=== PATIENT | female | born 1970 | race African-American/Black ===

== ENCOUNTER 2017-05-14 11:41 | Day surgery (SDC) | payer MEDICARE, MEDICAID ==
[2017-05-13 09:12] VITALS: BMI 35.4
[2017-05-14] MEDS ORDERED: Lidocaine 2% 10 ML INJ ONE (13:45)
[2017-05-14] MEDS ORDERED: Bupivacaine/Epinephrine 0.25% 30 ML VIAL ONE (13:45)
[2017-05-14] MEDS ORDERED: CEFAZOLIN/Water 2 GM/20 ML SYRINGE ONE (13:55)
[2017-05-14] MEDS ORDERED: Fentanyl 100 MCG/2 ML VIAL ONE (13:55)
[2017-05-14] MEDS ORDERED: Midazolam HCl 2 mg/2 ml Vial ONE (13:55)
[2017-05-14] MEDS ORDERED: HYDROcodone/Acetaminophen 5/325 mg Tablet ONE (15:27)
--- NOTE | 2017-05-14 16:23 | OP ---
DATE OF PROCEDURE: 05/14/2017 PREOPERATIVE DIAGNOSIS: Lupus, nonfunctioning central venous access device. PROCEDURE PERFORMED: MediPort removal. SURGEON: Soto Gonzalez M.D. ANESTHESIA: General. SPECIMEN: None. COMPLICATIONS: None. FINDINGS: Not applicable. TECHNIQUE: The patient was taken to the operating room and placed supine on the table. After genera l anesthetic was obtained, the right upper chest and the reported side was prepped and draped in a st erile fashion. Previous incision was excised because it was hypertrophic, cut, dissected down to the port. The port was pulled and removed. The catheter site going up towards the internal jugular vei n was oversewn using Vicryl sutures. Subcutaneous tissues were irrigated, closed using Vicryl and Mo nocryl and Dermabond. The patient went to recovery in stable condition. Instrument counts, needle c ounts, lap counts were correct.
[2017-05-14] MEDS ORDERED: Propofol 200 MG/20 ML VIAL ONE (16:36)
== END 2017-05-14 15:50 | disposition home or self-care (01) ==
LOC: SDC 11:41
PROVIDERS: ATTEND Surgery
PROC: 0JPT0WZ Removal of Totally Implantable Vascular Access Device from Trunk Subcutaneous Tissue and Fascia, Open Approach (ICD-10-PCS; principal; 2017-05-14)
DX: T82.594A Other mechanical complication of infusion catheter, initial encounter (principal); M32.9 Systemic lupus erythematosus, unspecified; Z88.1 Allergy status to other antibiotic agents; Z88.2 Allergy status to sulfonamides; Z98.890 Other specified postprocedural states
CPT/HCPCS: J2250; J2704; J3010

== ENCOUNTER 2017-07-19 14:43 | Outpatient (CLI) | payer MEDICARE, MEDICAID | END 2017-07-19 14:44 | disposition home or self-care (01) | LOC: BICMAMMO 14:43 | PROVIDERS: ATTEND Internal Medicine Rheumatology | DX: M81.0 Age-related osteoporosis without current pathological fracture (principal); M85.80 Other specified disorders of bone density and structure, unspecified site | CPT/HCPCS: 77080 ==

== ENCOUNTER 2018-05-30 13:44 | Outpatient (CLI) | payer MEDICARE, MEDICAID ==
--- NOTE | 2018-05-30 14:21 | RAD ---
RIGHT KNEE 2 VIEWS: Date: 05/30/18 HISTORY: Pain in right knee. FINDINGS/IMPRESSION: Mild degenerative changes are present. No fracture, dislocation, or bony destruction is identified. POS: [facility]
--- NOTE | 2018-05-30 14:55 | RAD ---
RIGHT FOOT 3 VIEWS: Date: 05/30/18 HISTORY: Pain. COMPARISON: None. FINDINGS: There is advanced degenerative disease of the first and second tarsometatarsal joints. There is an os sicle along the lateral margin of the interphalangeal joint of the great toe. This may be sequelae of a prior fracture. Small plantar calcaneal spur. No acute fracture or malalignment. IMPRESSION: 1. Advanced first and second tarsometatarsal joint degenerative changes. 2. No acute fracture or malalignment. 3. Accessory ossicle along the lateral margin of the interphalangeal joint of the great toe may be s equelae of a prior fracture. POS: [facility]
== END 2018-05-30 13:45 | disposition home or self-care (01) ==
LOC: BICRAD 13:44
PROVIDERS: ATTEND Internal Medicine Rheumatology
DX: M25.561 Pain in right knee (principal); M79.671 Pain in right foot; M19.071 Primary osteoarthritis, right ankle and foot; M17.11 Unilateral primary osteoarthritis, right knee

== ENCOUNTER 2018-06-10 09:03 | Outpatient (CLI) | payer MEDICARE, MEDICAID ==
--- NOTE | 2018-06-10 12:45 | MRI ---
MRI RIGHT FOOT WITHOUT CONTRAST: HISTORY: Medial foot pain x1 month. Denies any injury or surgery. FINDINGS: There is a well circumscribed, benign appearing bone lesion involving the distal tibial shaft, less t dinh a centimeter in size. The Achilles tendon is normal in appearance. The anterior extensor tendons are normal in appearance. This examination is more tailored for evalua tion of the foot than ankle, but the peroneus longus and brevis tendons appear intact. The posterior tibialis, flexor digitorum longus, and flexor hallucis longus tendons appear intact. No ankle joint abnormalities are seen. Lisfranc ligament is intact, and Lisfranc joint is normal in appearance. The plantar fascia is sesar l. The spring ligament complex appears unremarkable. Incidental note is made of some mild atrophy o f the quadratus planti muscle, which is nonspecific. No edema change to suggest any type of denervat ion process. The remainder of the intrinsic muscles of the foot appear normal. There are no signs of any stress fracture or stress reaction. The sinus tarsi region is normal in appearance. IMPRESSION: Essentially unremarkable MRI of the right foot. POS: [facility]
== END 2018-06-10 09:04 | disposition home or self-care (01) ==
LOC: TBSIIMAG 09:03
PROVIDERS: ATTEND Internal Medicine Rheumatology
DX: M79.671 Pain in right foot (principal)

== ENCOUNTER 2018-08-16 16:42 | Inpatient (IN) | payer MEDICARE, MEDICAID ==
[~2018-08-16 16:42] MED LIST: ISOVUE-370 76%-LOCM 1 ML ONE; Iopamidol 370 76% 50 ML VIAL FS ONE
[2018-08-16 17:24] LABS: #Basophils 0.1 thou/uL (0.0-0.2); #Eosinphils 0.1 thou/uL (0.0-0.7); #Lymphocytes 2.8 thou/uL (1.20-3.40); #Neutrophils 4.7 thou/uL (1.40-6.50); %Basophils 1.4 % (0.0-1.0); %Eosinophils 0.9 % (0.0-10.0); %Lymphocytes 32.4 % (21.0-51.0); %Neutrophils 54.3 % (42.0-75.0); Hemoglobin 15.6 g/dL (12.0-16.0); Mean Corpuscular HGB CONC 32.1 g/dL (32.0-36.0); Mean Corpuscular Hemoglobin 30.6 pg (27.0-31.0); Mean Corpuscular Volume 95.2 fL (78.0-98.0); Mean Platelet Volume 6.3 fL (7.4-10.4); Platelet Count 328 thou/uL (130-400); RBC Distribution Width 13.3 % (11.5-14.5); Red Blood Cell (RBC) Count 5.09 mill/uL (4.20-5.40); White Blood Cell (WBC) Count 8.7 thou/uL (4.8-10.8)
[2018-08-16 17:51] LABS: ALT (SGPT) 18 U/L (8-55); AST (SGOT) 15 U/L (5-34); Albumin 4.4 g/dL (3.5-5.0); Alkaline Phosphatase 105 U/L (40-150); Anion Gap 13 mmol/L (10-20); BUN (Urea Nitrogen) 11 mg/dL (7.0-18.7); Bilirubin, Total 0.4 mg/dL (0.2-1.2); Calc. Creatinine Clearance 0 mL/min (70-130); Calcium 9.7 mg/dL (7.8-10.44); Carbon Dioxide 26 mmol/L (22-29); Chloride 104 mmol/L (98-107); Estimated GFR-MDRD 88; Globulin 3.9 g/dL (2.4-3.5); Glucose 101 mg/dL (70-105); Lipase 52 U/L (8-78); Potassium 3.8 mmol/L (3.5-5.1); Protein, Total 8.3 g/dL (6.0-8.3); Sodium 139 mmol/L (136-145)
[2018-08-16] MEDS ORDERED: Morphine 4 MG/ML VIAL ONE (18:07)
[2018-08-16] MEDS ORDERED: Ondansetron PF 4 MG/2 ML Vial ONE (18:07)
[2018-08-16 18:13] LABS: Bilirubin Negative (Negative); Blood, Urine Negative (Negative); Glucose, Urine (Dipstick) Negative (Negative); Leukocyte Trace (Negative); Nitrite Negative (Negative); Protein, Urine (Dipstick) 30 mg/dL (Neg-Trace); Urobilinogen 0.2 mg/dL (Less than 2)
[2018-08-16 18:20] LABS: Clarity Clear (Clear)
[2018-08-16 18:21] LABS: Bacteria/HPF 1+ HPF (None Seen); RBC/HPF None Seen HPF (0-3); Squamous Epithelial 0-3 HPF (0-3)
--- NOTE | 2018-08-16 18:38 | PDOC.FPRHP ---
- History of Present Illness Chief Complaint: abdominal pain History of Present Illness: Ms. Reinoso is a 47yo female who presented to the ED this afternoon by recommendation from Dr. Shaw for management of suspected acute on chronic pancreatitis. She has a history of chronic pancreatitis followed by Dr. Shaw, her last admission to this hospital for this problem was in July of 2016. She has been to the [facility] for similar symptoms once since then. This episode began two days ago with decreased appetite and pain with eating. Her abdominal pain is located in the midepigastrium and has progressively worsened over the last two days to a 9/10 today. She has had associated chills, nausea, vomiting, and diarrhea for which Immodium did not help. Zofran helped the nausea. Her last attempt to eat was last night and she was unable to keep it down. PMH is significant for Lupus and HTN. ED Course: Morphine 8mg IV, Zofran 4mg IV, 1L NS bolus, maintenance NS 200mL/hour. - Allergies/Adverse Reactions Allergies Allergy/AdvReac Type Severity Reaction Status Date / Time sulfamethoxazole Allergy Severe lips Verified 05/13/17 09:12 [From Bactrim] swelled up; throat was closing trimethoprim [From Bactrim] Allergy Severe lips Verified 05/13/17 09:12 swelled up; throat was closing - Home Medications Medication Instructions Recorded Confirmed Type ALPRAZolam [Xanax] 1 mg PO HS 11/24/13 08/16/18 History Atenolol [Tenormin] 100 mg PO DAILY 11/24/13 08/16/18 History Esomeprazole Magnesium [Nexium] 40 mg PO QAM 11/24/13 08/16/18 History FLUoxetine HCl [Prozac] 60 mg PO QAM 11/24/13 08/16/18 History Mycophenolate Mofetil [Cellcept] 250 mg PO BID 11/24/13 08/16/18 History predniSONE 1 mg PO QAM- 11/24/13 08/16/18 History Pancrelipase 03235 [Creon DR 4 capsule PO TID-WM 08/01/16 08/16/18 History 10903] busPIRone HCl [Buspar] 10 mg PO QAM 08/01/16 08/16/18 History NIFEdipine [Nifedipine ER] 60 mg PO QAM 05/13/17 08/16/18 History - History PMHx: Hypertension Lupus PSHx: Cholecystectomy , x3 Mediport insertion and removal FHx: Mother - HTN Several aunts with ovarian cancer, liver metastasis Social: Does not smoke or drink alcohol. - Review of Systems General: reports: fever/chills. denies: weight/appetite/sleep changes, night sweats, fatigue ENT: denies: nasal congestion, rhinorrhea Respiratory: denies: cough, congestion Cardiovascular: denies: chest pain, palpitation, edema, paroxysmal nocturnal dyspnea, orthopnea Gastrointestinal: reports: nausea, vomiting, diarrhea, abdominal pain. denies: constipation, GI bleeding Genitourinary: denies: incontinence, dysuria, polyuria, discharge Skin: denies: rashes Musculoskeletal: denies: pain Neurological: reports: numbness (reports intermittent facial numbness in last month) Psychological: reports: anxiety, depression - Vital signs BP: 134/64 HR: 77 RR: 14 Pox: 95% on RA Wt: 92.5kg - Physical Exam Constitutional: NAD, awake, alert and oriented HEENT: normocephalic and atraumatic Neck: supple, FROM Heart: RRR, normal S1/S2, no murmurs/rubs/gallops, pulses present, no edema Lungs: CTAB, no respiratory distress, good air movement, no rales/rhonchi, no wheezing, no retractions Abdomen: soft (exquisitely tender in midepigastrium), bowel sounds present Musculoskeletal: normal structure, normal tone Neurological: no focal deficit Skin: no rash/lesions Psychiatric: normal mood and affect FMR H&P: Results - Labs Result Diagrams: 08/16/18 17:13 08/16/18 17:13 Lab results: WBC 8.7 thou/uL (4.8-10.8) 08/16/18 17:13 Hgb 15.6 g/dL (12.0-16.0) 08/16/18 17:13 Hct 48.5 % (36.0-47.0) H 08/16/18 17:13 MCV 95.2 fL (78.0-98.0) 08/16/18 17:13 Plt Count 328 thou/uL (130-400) 08/16/18 17:13 Neutrophils % 54.3 % (42.0-75.0) 08/16/18 17:13 Sodium 139 mmol/L (136-145) 08/16/18 17:13 Potassium 3.8 mmol/L (3.5-5.1) 08/16/18 17:13 Chloride 104 mmol/L (98-107) 08/16/18 17:13 Carbon Dioxide 26 mmol/L (22-29) 08/16/18 17:13 BUN 11 mg/dL (7.0-18.7) 08/16/18 17:13 Creatinine 0.84 mg/dL (0.6-1.1) 08/16/18 17:13 Glucose 101 mg/dL (70-105) 08/16/18 17:13 Calcium 9.7 mg/dL (7.8-10.44) 08/16/18 17:13 Total Bilirubin 0.4 mg/dL (0.2-1.2) 08/16/18 17:13 AST 15 U/L (5-34) 08/16/18 17:13 ALT 18 U/L (8-55) 08/16/18 17:13 Alkaline Phosphatase 105 U/L (40-150) 08/16/18 17:13 Serum Total Protein 8.3 g/dL (6.0-8.3) 08/16/18 17:13 Albumin 4.4 g/dL (3.5-5.0) 08/16/18 17:13 Lipase 52 U/L (8-78) 08/16/18 17:13 Urine Ketones Negative mg/dL (Negative) 08/16/18 17:52 Urine Blood Negative (Negative) 08/16/18 17:52 Urine Nitrite Negative (Negative) 08/16/18 17:52 Ur Leukocyte Esterase Trace (Negative) H 08/16/18 17:52 Urine RBC None Seen HPF (0-3) 08/16/18 17:52 Urine WBC 4-6 HPF (0-3) A 08/16/18 17:52 Ur Squamous Epith Cells 0-3 HPF (0-3) 08/16/18 17:52 Urine Bacteria 1+ HPF (None Seen) A 08/16/18 17:52 - EKG Interpretation EKG: "Normal sinus rhythm 68BPM. Similar to old EKG, Conduction normal, ST segments normal, T waves, Prolonged QT." FMR H&P: A/P - Problem List (1) Pancreatitis Current Visit: No Status: Acute Code(s): K85.90 - ACUTE PANCREATITIS WITHOUT NECROSIS OR INFECTION, UNSP Qualifiers: Chronicity: acute Pancreatitis type: unspecified pancreatitis type Acute pancreatitis complication: no infection or necrosis Qualified Code(s): K85.90 - Acute pancreatitis without necrosis or infection, unspecified (2) HTN (hypertension) Current Visit: No Status: Chronic Code(s): I10 - ESSENTIAL (PRIMARY) HYPERTENSION Qualifiers: Hypertension type: essential hypertension Qualified Code(s): I10 - Essential (primary) hypertension (3) Lupus (systemic lupus erythematosus) Current Visit: No Status: Chronic Code(s): M32.9 - SYSTEMIC LUPUS ERYTHEMATOSUS, UNSPECIFIED (4) GERD (gastroesophageal reflux disease) Current Visit: Yes Status: Acute Code(s): K21.9 - GASTRO-ESOPHAGEAL REFLUX DISEASE WITHOUT ESOPHAGITIS (5) Asymptomatic bacteriuria Current Visit: Yes Status: Acute Code(s): R82.71 - BACTERIURIA (6) Anxiety and depression Current Visit: Yes Status: Acute Code(s): F41.9 - ANXIETY DISORDER, UNSPECIFIED; F32.9 - MAJOR DEPRESSIVE DISORDER, SINGLE EPISODE, UNSPECIFIED - Plan 1. Acute on chronic pancreatitis - Lipase 52, LDH 297, AST/ALT . - Aggressive IV fluid therapy, maintenance NS 200mL/hr. - Pain control with morphine IV 4mg q4hr PRN for pain. - Zofran prn for nausea. - NPO, Meds with sips of water. - CT abdomen and pelvis with IV and oral contrast - The pancreas is enlarged and stable since 07/2016. There is no mass, ductal dilatation, calcifications, or fat stranding. - Consult GI - Dr. Shaw. - Will admit to medical as she is low risk for complicated pancreatitis. 2. Hypertension - Currently normotensive, stable, will resume atenolol 100mg and nifedipine 60mg. 3. Lupus - Stable, continue Prednisone 1mg, Creon, and CellCept. 4. GERD - Stable, will resume Nexium. 5. Anxiety/Depression - Stable, will resume alprazolam, prozac, and buspirone. 6. Asymptomatic bacteriuria - she is asymptomatic. If symptoms present, will treat accordingly. Code Status: Full VTE Prophylaxis: Lovenox 40mg Peripheral IV 22g AC 08/16/2018. Disposition/LOS: Admitted to medical floor. Likely length of stay 48 hours. Plan will be for d/c home when ready. FMR H&P: Upper Level - Pertinent history 47 y/o F with PMHx chronic pancreatitis and lupus presents to the ED from Dr. Shaw office for chronic pancreatitis. She has been having symptoms of increased satiety, bloating, and abdominal pain since this weekend. She reports that she drank a anya on 11 of August and she wasn't feeling well at the time, but since then it has gotten worse. Denies fevers, reports nausea for which she has been taking zofran. Reports the morphine that she received in the ED helped some with the pain. She reports the pain is worse after eating. She has not eaten since yesterday. - Pertinent findings Vitals: BP 105/83, HR 74, RR 16, Temp 98.3, O2 sat 95% on RA PE: Gen - alert, oriented, resting comfortably in bed in NAD HEENT - MMM CV - RRR, no murmurs Resp - CTAB, no wheezes Abd - soft, Non-distended, moderately tender in ANGELA region, no rebound or guarding Ext - no edema Labs: WBC 8.7, Hb 15.6, Na 139, K 3.8, BUN 11, Cr 0.84, Lipase 52, AST 15, ALT 18, t bili 0.4, Alk phos 105 CT abd: pancreas enlarged, but stable from prior studies, no acute findings - Plan Date/Time: 08/16/181836 ICarol MD, PGY-3, have evaluated this patient and agree with findings/ plan as outlined by customer operations intern resident. Pertinent changes/additions are listed here. 1. Chronic Pancreatitis Patient with no elevated in lipase, white count. Stable CT findings with no abscess -Will admit for pain control -NPO, will advance diet as tolerated -Morphine and toradol prn pain control -Continue home creon and pantoprazole -NS @ 200 -Zofran prn nausea -Dr. Shaw with GI has been consulted, appreciate recs 2. Lupus Patient does not appear to be having a lupus flare -Will continue home cellcept and prednisone 3. HTN -Continue home nifedipine and atenolol 4. Anxiety -Continue home xanax, buspirone, and fluoxetine Dispo: admit to medical VTE ppx: Lovenox Code status: Full Diet NPO
[2018-08-16 19:19] LABS: CRP (Inflammatory) 1.28 mg/dL (= or < 0.5); Complement-C4 42.2 mg/dL (15-57)
--- NOTE | 2018-08-16 21:39 | CT ---
CT ABDOMEN AND PELVIS WITH ORAL AND IV CONTRAST: HISTORY: Acute on chronic pancreatitis. COMPARISON: 07/28/2016 FINDINGS: Mild atelectatic changes are seen at the left lung base. The liver, spleen, adrenal glands, and kidn eys are normal. The prominent/enlarged pancreas is stable since 07/28/2016, without mass, abnormal pa ncreatic ductal dilatation, calcifications, or peripancreatic inflammatory changes. No free air, tramaine e fluid, or lymphadenopathy is seen in the abdomen or pelvis. No abnormally loculated fluid collecti ons are noted. The small bowel loops are not abnormally dilated. There is colonic diverticulosis without diverticul itis. Uterus and ovaries are present. There is a 2 cm right adnexal cyst, likely ovarian. A normal appearing appendix is seen. There are vascular calcifications without evidence of aneurysmal dilatation of the abdominal aorta. There are degenerative changes in the spine. The patient is post cholecystectomy. No portal splenic venous thrombosis is seen. IMPRESSION: No CT evidence of complications of pancreatitis. POS: [facility]
[2018-08-16] MEDS ORDERED: Famotidine/PF 20 mg/2ml Vial ONE (22:03)
[2018-08-16] MEDS ORDERED: Famotidine 20 MG TAB ONE (22:04)
[2018-08-16] MEDS ORDERED: Morphine 4 MG/ML VIAL SLOW IVP PRN (22:12)
[2018-08-16] MEDS ORDERED: ALPRAZolam 0.5 MG TAB PO SCH (22:30)
[2018-08-16] MEDS ORDERED: Mycophenolate 250 MG CAP PO SCH (22:30)
[2018-08-16] MEDS ORDERED: ALPRAZolam 0.25 MG TAB ONE (22:49)
[2018-08-16] MEDS: Sodium Chloride 0.9% 1,000 ML IV SCH (22:59)
--- NOTE | 2018-08-17 00:19 | CON ---
DATE OF CONSULTATION: REASON FOR CONSULT: Epigastric pain, nausea, and vomiting. HISTORY OF PRESENT ILLNESS: Ms. Reinoso is a 47-year-old female, well known to me from the past, with history of significant lupus for over 15 years. This was initially diagnosed at [facility] when she presented with systemic disease including signs of pain and mild pancreatic inflammation at that time. 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 She came to my office after about a week, she states epigastric pain with regurgitation and inability to tolerate p.o. She has not really had much diarrhea. She cut her CellCept down to 250 mg once a day. She was not able to tolerate 500 mg which she had been on in the past. She was using pancreatic enzymes at home. More recently, she was taking some Zofran and her Protonix. She was trying to just go on Gatorade, but the pain has been pretty severe. She has been using some old Bentyl she had, but it really was not helping. She had an episode similar to this in 2017 at which time she had a CAT scan that was nondiagnostic, except for generous size pancreas. She had an endoscopic ultrasound at that admission which was normal. No abnormalities were noted. It was felt that with the elevated double-stranded DNA at that time, she probably was having a lupus flare. There was also some concern at that admission that her CellCept was giving her chronic diarrhea. She did have a normal EGD at that time. With her ongoing symptoms and worsening symptoms prior to coming to see me and the fact she has not been able to hold down any liquids for 2 days, I recommended she be admitted. There were no rooms available for admission, so was entered through the emergency room. Now, she has been admitted to her primary physician's Family Practice, and I have been asked to see her in evaluation. PAST MEDICAL HISTORY: 1. Lupus, previous complications, gastritis, pancreatitis, pneumonitis, pericardial effusions, hypertension. Her pancreatic involvement has been felt to be based on the process of vasculitis. 2. Prior history of osteoporosis. 3. Depression. 4. Steroid dependence in the past. 5. Proteinuria in the past. 6. History of gastroparesis, reflux, chronic abdominal pain. PAST SURGICAL HISTORY: Laparoscopic cholecystectomy. ALLERGIES: SULFA DRUGS AND BACTRIM. MEDICATIONS: At home: 1. Prednisone. 2. BuSpar. 3. Pancrelipase. 4. Nifedipine. 5. CellCept. 6. Fluoxetine. 7. Nexium. 8. Belimumab. 9. Atenolol. 10. Alprazolam. REVIEW OF SYSTEMS: Negative for fever, chills, rashes, myalgias, or arthralgias. Negative for melena, hematochezia, or hematemesis. Negative for headaches, vision changes. PHYSICAL EXAMINATION: VITAL SIGNS: Temperature is 98.6, pulse is 52, and blood pressure 157/90. GENERAL: She has jorge facies. HEENT: Oropharynx without lesions. There is no evidence of thrush. NECK: Supple. LUNGS: Clear. HEART: Regular rate and rhythm, without clicks, rubs, or murmurs. ABDOMEN: Soft. There is mild tenderness in the epigastrium with voluntary guarding, but no rebound. There is no rebound or guarding in the lower abdomen. EXTREMITIES: No clubbing, cyanosis, or edema. SKIN: Without overt rashes or lesions. LABORATORY DATA: White count 8.7, hemoglobin 15.6, platelet count 328. Comprehensive metabolic profile is normal. Lipase is 52. Urinalysis, moderate blood. ASSESSMENT: 1. Lupus. 2. Severe abdominal pain last week with inability to tolerate p.o. RECOMMENDATIONS: IV fluids, clear liquids, nausea control. Would check a C3, C4, double-stranded DNA, CRP, and sedimentation rate to evaluate her lupus. It may be reasonable to involve her step down specialist in her care. If she has ongoing symptoms, we can consider repeating an EGD or imaging, although these have been normal in the past. We will follow along with you. Job ID: [id number]
[2018-08-17] MEDS ORDERED: Ketorolac Tromethamine 30 MG/ML VIAL IVP PRN (00:21)
[2018-08-17] MEDS ORDERED: Morphine 4 MG/ML VIAL ONE (04:09)
[2018-08-17 04:10] LABS: #Basophils 0.1 thou/uL (0.0-0.2); #Eosinphils 0.1 thou/uL (0.0-0.7); #Lymphocytes 2.9 thou/uL (1.20-3.40); #Monocytes 0.8 thou/uL (0.11-0.59); #Neutrophils 3.9 thou/uL (1.40-6.50); %Basophils 0.8 % (0.0-1.0); %Eosinophils 0.9 % (0.0-10.0); %Lymphocytes 37.1 % (21.0-51.0); %Monocytes 10.7 % (0.0-10.0); %Neutrophils 50.5 % (42.0-75.0); Hemoglobin 13.8 g/dL (12.0-16.0); Mean Corpuscular HGB CONC 32.1 g/dL (32.0-36.0); Mean Corpuscular Hemoglobin 30.9 pg (27.0-31.0); Mean Corpuscular Volume 96.5 fL (78.0-98.0); Mean Platelet Volume 6.4 fL (7.4-10.4); Platelet Count 273 thou/uL (130-400); RBC Distribution Width 13.4 % (11.5-14.5); Red Blood Cell (RBC) Count 4.47 mill/uL (4.20-5.40); White Blood Cell (WBC) Count 7.8 thou/uL (4.8-10.8)
[2018-08-17 04:28] LABS: ALT (SGPT) 217 U/L (8-55); AST (SGOT) 228 U/L (5-34); Albumin 3.8 g/dL (3.5-5.0); Alkaline Phosphatase 124 U/L (40-150); Anion Gap 9 mmol/L (10-20); BUN (Urea Nitrogen) 8 mg/dL (7.0-18.7); Bilirubin, Total 0.5 mg/dL (0.2-1.2); Calc. Creatinine Clearance 0 mL/min (70-130); Calcium 8.8 mg/dL (7.8-10.44); Carbon Dioxide 28 mmol/L (22-29); Chloride 108 mmol/L (98-107); Estimated GFR-MDRD Greater than 90; Glucose 101 mg/dL (70-105); Potassium 4.6 mmol/L (3.5-5.1); Protein, Total 6.8 g/dL (6.0-8.3); Sodium 140 mmol/L (136-145)
[2018-08-17] MEDS: Sodium Chloride 0.9% 1,000 ML IV SCH ×5 (05:51→21:06)
[2018-08-17 07:43] VITALS: BMI 38.5
[2018-08-17] MEDS: Pancrelipase DR 12000 1 CAP PO SCH ×3 (08:00→17:06)
--- NOTE | 2018-08-17 09:06 | PDOC.FM ---
- Subjective Subjective: pt resting in bed, she reports minimal pain, willing to try PO today - Objective Vital Signs & Weight: Vital Signs (12 hours) Temp Pulse Resp BP Pulse Ox 08/17/18 07:41 97.8 F 78 18 133/80 93 L Weight Weight 92.533 kg Result Diagrams: 08/17/18 03:57 08/17/18 03:57 Phys Exam - Physical Examination Constitutional: NAD HEENT: moist MMs Neck: no JVD Respiratory: clear to auscultation bilateral Cardiovascular: no significant murmur Gastrointestinal: non-tender, no distention Musculoskeletal: pulses present Neurological: non-focal Psychiatric: normal affect Skin: no rash Dx/Plan (1) Pancreatic enlargement Code(s): K86.9 - DISEASE OF PANCREAS, UNSPECIFIED Status: Acute (2) CKD (chronic kidney disease), stage II Code(s): N18.2 - CHRONIC KIDNEY DISEASE, STAGE 2 (MILD) Status: Chronic (3) HTN (hypertension) Code(s): I10 - ESSENTIAL (PRIMARY) HYPERTENSION Status: Chronic Qualifiers: Hypertension type: essential hypertension Qualified Code(s): I10 - Essential (primary) hypertension (4) Lupus (systemic lupus erythematosus) Code(s): M32.9 - SYSTEMIC LUPUS ERYTHEMATOSUS, UNSPECIFIED Status: Chronic - Plan Plan: chronic pancreatitis - Lipase 52, LDH 297, AST/ALT . - Aggressive IV fluid therapy, maintenance NS 200mL/hr. - Pain control with morphine IV 4mg q4hr PRN for pain. - Zofran prn for nausea. - ADAT - CT abdomen and pelvis with IV and oral contrast: pancreas is enlarged and stable since 07/2016. There is no mass, ductal dilatation, calcifications, or fat stranding. - Consult GI - Dr. Shaw, appreciate recs - Will admit to medical as she is low risk for complicated pancreatitis. Hypertension - Currently normotensive, stable, will resume atenolol 100mg and nifedipine 60mg. Lupus - Stable, continue Prednisone 1mg, Creon, and CellCept. GERD - Stable, continue Nexium. Anxiety/Depression - Stable, continue alprazolam, prozac, and buspirone. Asymptomatic bacteriuria - she is asymptomatic. If symptoms present, will treat accordingly. Code Status: Full VTE Prophylaxis: Lovenox 40mg Dispo: DC with minimal pain and PO tolerance Addendum - Attending - Attending Attestation Date/Time: 08/17/18 2623 I personally evaluated the patient and discussed the management with Dr. Villagran. I agree with the History, Examination, Assessment and Plan documented above with any addition or exceptions noted below.
[2018-08-17] MEDS ORDERED: Enoxaparin Sodium 40 MG/0.4 ML SYRINGE ONE (11:05)
[2018-08-17] MEDS: Enoxaparin Sodium 40 MG/0.4 ML SYRINGE SC SCH (11:28)
[2018-08-17] MEDS: Mycophenolate 250 MG CAP PO SCH ×2 (12:26→21:03)
[2018-08-17] MEDS: NIFEdipine XL 60 MG TAB PO SCH (12:27)
[2018-08-17] MEDS: Atenolol 50 MG TAB PO SCH (12:27)
[2018-08-17] MEDS: predniSONE 1 MG TAB PO SCH (12:27)
[2018-08-17] MEDS: FLUoxetine HCl 20 MG CAP PO SCH (12:28)
[2018-08-17] MEDS: busPIRone HCl 5 MG TAB PO SCH (12:28)
[2018-08-17] MEDS ORDERED: Cosyntropin 250 MCG VIAL SLOW IVP SCH (17:15)
--- NOTE | 2018-08-17 17:34 | PRG ---
DATE OF SERVICE: 08/17/2018 SUBJECTIVE: Ms. Reinoso is lying in bed. She states her stomach feels better than it did yesterday. She has still only been able to eat a little bit of broth and had stopped, did give her some diarrhea as her abdomen is still pretty uncomfortable. She has not had any vomiting noted today. OBJECTIVE: VITAL SIGNS: Temperature is 97.5, pulse is 62, blood pressure is 108/73, O2 saturation 96%, and respirations 18. GENERAL: She has jorge facies. She has chronic steroid use. HEENT: Oropharynx without any evidence of thrush or other oral lesions. LUNGS: Clear. HEART: Regular rate and rhythm without clicks or murmurs. ABDOMEN: Soft. There is no rebound. There is no guarding. EXTREMITIES: No clubbing, cyanosis, or edema. LABORATORY DATA: White count 7.8, hemoglobin 13.8, and platelet count 273. Sedimentation rate 26. Sodium 140, potassium is 4.6, chloride is 108, BUN and creatinine are 8 and 0.75. AST and ALT bumped from normal yesterday to 228 and 217. CRP was 1.28. Lipase is 52. Double-stranded DNA is pending. Complement C3 and C4 were normal. ASSESSMENT: Abdominal pain, severe several days of vomiting prior to admission. She has had bouts, such as this in the past, typically when her lupus flares. Usually, workup is negative. Her CAT scan did show a generous pancreas, this has been noted in 2017 when she was here. After that admission, she had endoscopic ultrasound of the pancreas, which was read as completely normal. There were no signs of pancreatitis on her CT. RECOMMENDATIONS: 1. EGD tomorrow to make sure there is not a Miladis or ulcers, although that is likely normal. 2. If symptoms persist, consider gastroparesis treatment. 3. 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 Pineda, he can be reached via phone. I will leave this to the primary service. Job ID: [id number]
[2018-08-17] MEDS: Ondansetron ODT 4 MG TAB PO PRN (17:36)
[2018-08-17] MEDS: ALPRAZolam 0.5 MG TAB PO SCH (21:03)
[2018-08-18] MEDS: Sodium Chloride 0.9% 1,000 ML IV SCH (05:27)
[2018-08-18 06:28] LABS: ALT (SGPT) 196 U/L (8-55); AST (SGOT) 97 U/L (5-34); Albumin 3.5 g/dL (3.5-5.0); Alkaline Phosphatase 111 U/L (40-150); Anion Gap 8 mmol/L (10-20); BUN (Urea Nitrogen) Less than 4 mg/dL (7.0-18.7); Bilirubin, Total 0.5 mg/dL (0.2-1.2); Calc. Creatinine Clearance 159 mL/min (70-130); Calcium 8.7 mg/dL (7.8-10.44); Carbon Dioxide 26 mmol/L (22-29); Chloride 110 mmol/L (98-107); Estimated GFR-MDRD Greater than 90; Glucose 80 mg/dL (70-105); Lipase 39 U/L (8-78); Potassium 3.8 mmol/L (3.5-5.1); Protein, Total 6.5 g/dL (6.0-8.3); Sodium 140 mmol/L (136-145)
[2018-08-18 06:51] LABS: Hemoglobin 13.4 g/dL (12.0-16.0); Mean Corpuscular HGB CONC 31.3 g/dL (32.0-36.0); Mean Corpuscular Hemoglobin 30.5 pg (27.0-31.0); Mean Corpuscular Volume 97.4 fL (78.0-98.0); Mean Platelet Volume 6.8 fL (7.4-10.4); Platelet Count 250 thou/uL (130-400); RBC Distribution Width 13.5 % (11.5-14.5); Red Blood Cell (RBC) Count 4.38 mill/uL (4.20-5.40); White Blood Cell (WBC) Count 5.8 thou/uL (4.8-10.8)
--- NOTE | 2018-08-18 08:04 | PDOC.FM ---
- Subjective Subjective: pt resting comfortably in bed, reports minimal abdominal pain. continues to have difficulties tolerating PO - Objective Vital Signs & Weight: Vital Signs (12 hours) Temp Pulse Resp BP Pulse Ox 08/18/18 07:19 98.1 F 66 16 131/82 97 08/18/18 04:00 98.6 F 65 18 103/63 94 L 08/17/18 23:38 98.1 F 72 16 117/74 97 08/17/18 20:27 98.4 F 67 16 110/77 94 L Weight Weight 92.533 kg I&O: 08/17/18 08/18/18 08/19/18 06:59 06:59 06:59 Intake Total 600 Balance 600 Result Diagrams: 08/18/18 04:56 08/18/18 04:56 Phys Exam - Physical Examination Constitutional: NAD HEENT: moist MMs Neck: no JVD Respiratory: clear to auscultation bilateral Cardiovascular: RRR, no significant murmur Gastrointestinal: soft, non-tender, no distention, positive bowel sounds Musculoskeletal: pulses present Neurological: moves all 4 limbs Psychiatric: normal affect Skin: no rash Dx/Plan (1) Pancreatic enlargement Code(s): K86.9 - DISEASE OF PANCREAS, UNSPECIFIED Status: Acute (2) CKD (chronic kidney disease), stage II Code(s): N18.2 - CHRONIC KIDNEY DISEASE, STAGE 2 (MILD) Status: Chronic (3) HTN (hypertension) Code(s): I10 - ESSENTIAL (PRIMARY) HYPERTENSION Status: Chronic Qualifiers: Hypertension type: essential hypertension Qualified Code(s): I10 - Essential (primary) hypertension (4) Lupus (systemic lupus erythematosus) Code(s): M32.9 - SYSTEMIC LUPUS ERYTHEMATOSUS, UNSPECIFIED Status: Chronic - Plan Plan: chronic pancreatitis - Lipase 52, LDH 297, AST/ALT improved - CT abdomen and pelvis with IV and oral contrast: pancreas is enlarged and stable since 07/2016. There is no mass, ductal dilatation, calcifications, or fat stranding. - Consult GI - Dr. Shaw, appreciate recs - EGD today - pain has improved, tolerating some PO. evaluate for other causes of abdominal pain Transaminitis - improved Hypertension - Currently normotensive, stable, will resume atenolol 100mg and nifedipine 60mg. Lupus - Stable, continue Prednisone 1mg, Creon, and CellCept. - consider calling to confer with rhuematologist regarding pain GERD - Stable, continue Nexium. Anxiety/Depression - Stable, continue alprazolam, prozac, and buspirone. Asymptomatic bacteriuria - she is asymptomatic. If symptoms present, will treat accordingly. Code Status: Full VTE Prophylaxis: Lovenox 40mg Dispo: further eval today, advance diet Addendum - Attending - Attending Attestation Date/Time: 08/18/18 1054 I personally evaluated the patient and discussed the management with Dr. Villagran. I agree with the History, Examination, Assessment and Plan documented above with any addition or exceptions noted below.
[2018-08-18 08:44] LABS: Band 1 % (5-11); Eosinophils 3 % (0-10); Lymphocytes 64 % (21-51); MDiff Complete? YES; Monocytes 3 % (0-10); Neutrophil 29 % (42-75); RBC Morphology Normal
[2018-08-18] MEDS ORDERED: Fentanyl 100 MCG/2 ML VIAL ONE (12:36)
[2018-08-18] MEDS ORDERED: Promethazine HCl 25 MG/ML VIAL SLOW IVP PRN (12:37)
[2018-08-18] MEDS ORDERED: Ondansetron HCl/PF 4 MG/2 ML Vial IVP PRN (12:37)
[2018-08-18] MEDS ORDERED: Promethazine HCl 25 MG/ML VIAL IM PRN (12:37)
[2018-08-18] MEDS: busPIRone HCl 5 MG TAB PO SCH (13:00)
[2018-08-18] MEDS: NIFEdipine XL 60 MG TAB PO SCH (13:00)
[2018-08-18] MEDS: FLUoxetine HCl 20 MG CAP PO SCH (13:00)
[2018-08-18] MEDS: predniSONE 1 MG TAB PO SCH (13:01)
[2018-08-18] MEDS: Atenolol 50 MG TAB PO SCH (13:01)
[2018-08-18] MEDS: Pancrelipase DR 12000 1 CAP PO SCH ×3 (13:02→16:38)
[2018-08-18] MEDS: Mycophenolate 250 MG CAP PO SCH ×2 (13:02→21:06)
[2018-08-18] MEDS: Enoxaparin Sodium 40 MG/0.4 ML SYRINGE SC SCH (13:02)
--- NOTE | 2018-08-18 13:17 | OP ---
DATE OF PROCEDURE: 08/18/2018 ASSISTANCE SURGEON: None. PROCEDURE PERFORMED: Esophagogastroduodenoscopy, diagnostic. INDICATIONS: 1. Epigastric pain. 2. Nausea and vomiting. MEDICATIONS: See Anesthesia record. FINDINGS: After discussion of the risks, benefits, and alternatives of the procedure, informed consent was obtained and witnessed. Pre-endoscopic cardiopulmonary examination was satisfactory. Time-out was performed before sedation was achieved. Sedation was achieved with Anesthesia assistance in the endoscopy unit. A Pentax adult upper endoscope was placed into the oropharynx and passed through the cricopharyngeus under direct visualization. The esophageal mucosa appeared normal throughout with a normal-appearing Z-line at 37 cm from the incisors. The endoscope was advanced into the stomach. Forward and retroflexed views of the entire gastric mucosa were obtained. The gastric mucosa appears normal. The endoscope was advanced through the pylorus and into the first and second portions of the duodenum, which also appeared normal. The upper endoscope was completely withdrawn and the patient allowed to recover. The patient tolerated the procedure well. There were no immediate postprocedure complications. IMPRESSION: Normal esophagogastroduodenoscopy. RECOMMENDATION: 1. Advance diet as tolerated. 2. We will start Reglan 10 mg IV every 8 hours. Job ID: [id number]
[2018-08-18] MEDS ORDERED: PROPOFOL 200 MG/20 ML VIAL ONE (13:22)
[2018-08-18] MEDS ORDERED: Lidocaine 1% PF 5 ML VIAL ONE (13:22)
[2018-08-18] MEDS ORDERED: Metoclopramide HCl 10 MG/2 ML VIAL IVP SCH (14:00)
--- NOTE | 2018-08-18 19:47 | PRG ---
DATE OF SERVICE: 08/18/2018 SUBJECTIVE: Ms. Reinoso had an EGD today that was normal. Dr. Leong empirically started her on some Reglan. However, she was having some diarrhea yesterday, and it has actually been worse this evening. She has had no nausea or vomiting, she has felt a little bit better. she has felt a little bit better she said even this morning before she started the Reglan. OBJECTIVE: VITAL SIGNS: Blood pressure 103/69, pulse 63, temperature 98. GENERAL: She has jorge facies. LUNGS: Clear. HEART: Regular rate and rhythm without clicks or murmurs. ABDOMEN: Soft and nontender. LABORATORY DATA: White count 5.8, hemoglobin 13.3, platelet count 250, 29% neutrophils, 64% lymphocytes. ESR was 26 and CRP was 128. Electrolytes were normal. AST and ALT were 97 and 196 today. Fasting cortisol was less than 1 at baseline, it was 10 after 30 minutes after cortisol stimulation test, it went up to 18 after 90 minutes. Complement C3 and C4 were normal. Double-stranded DNA is pending. ASSESSMENT: 1. Nausea and vomiting, slightly improved. Abdominal pain improved, but she is receiving pain medicines. EGD is normal, pancreas normal. 2. Undetectable resting cortisol. There is an adequate response, but I suspect she has some adrenal insufficiency to explain her nausea, vomiting, and abdominal pain. 3. Lupus. She does have a little bit of a sedimentation rate and CRP. The complement levels C3 and C4 were normal. We will wait and see where double-stranded DNA is as far as showing overall activity of her lupus. 4. Diarrhea. It is unclear if this is related to her CAT scan she had on admission or possibly even the Reglan she received this afternoon. We would stop the Reglan and order some stool studies. She is on some pancreatic enzymes already. We will check stool for fecal fat as well. We will follow along with you. PLAN: 1. Stop Reglan. Start prednisone 20 mg q.a.m. 2. Obtain stool studies. 3. Advance diet. Job ID: [id number]
[2018-08-18] MEDS: ALPRAZolam 0.5 MG TAB PO SCH (21:06)
[2018-08-19] MEDS: Ondansetron ODT 4 MG TAB PO PRN (02:50)
[2018-08-19 06:13] LABS: #Basophils 0.1 thou/uL (0.0-0.2); #Eosinphils 0.2 thou/uL (0.0-0.7); #Lymphocytes 3.4 thou/uL (1.20-3.40); #Monocytes 0.7 thou/uL (0.11-0.59); #Neutrophils 2.9 thou/uL (1.40-6.50); %Basophils 1.1 % (0.0-1.0); %Eosinophils 3.2 % (0.0-10.0); %Lymphocytes 46.4 % (21.0-51.0); %Monocytes 9.9 % (0.0-10.0); %Neutrophils 39.3 % (42.0-75.0); Hemoglobin 13.4 g/dL (12.0-16.0); Mean Corpuscular HGB CONC 31.2 g/dL (32.0-36.0); Mean Corpuscular Hemoglobin 30.1 pg (27.0-31.0); Mean Corpuscular Volume 96.3 fL (78.0-98.0); Mean Platelet Volume 6.7 fL (7.4-10.4); Platelet Count 281 thou/uL (130-400); RBC Distribution Width 13.2 % (11.5-14.5); Red Blood Cell (RBC) Count 4.46 mill/uL (4.20-5.40); White Blood Cell (WBC) Count 7.3 thou/uL (4.8-10.8)
[2018-08-19 06:32] LABS: ALT (SGPT) 131 U/L (8-55); AST (SGOT) 44 U/L (5-34); Albumin 3.8 g/dL (3.5-5.0); Alkaline Phosphatase 107 U/L (40-150); Anion Gap 10 mmol/L (10-20); BUN (Urea Nitrogen) 4 mg/dL (7.0-18.7); Bilirubin, Total 0.5 mg/dL (0.2-1.2); Calc. Creatinine Clearance 147 mL/min (70-130); Carbon Dioxide 28 mmol/L (22-29); Chloride 105 mmol/L (98-107); Estimated GFR-MDRD Greater than 90; Glucose 79 mg/dL (70-105); Lipase 39 U/L (8-78); Potassium 3.7 mmol/L (3.5-5.1); Protein, Total 6.8 g/dL (6.0-8.3); Sodium 139 mmol/L (136-145)
[2018-08-19] MEDS ORDERED: predniSONE 20 MG TAB PO SCH ×2 (08:00→11:21)
[2018-08-19] MEDS: Pancrelipase DR 12000 1 CAP PO SCH ×2 (08:15→12:15)
[2018-08-19] MEDS: FLUoxetine HCl 20 MG CAP PO SCH (08:16)
[2018-08-19] MEDS: busPIRone HCl 5 MG TAB PO SCH (08:16)
[2018-08-19] MEDS: Enoxaparin Sodium 40 MG/0.4 ML SYRINGE SC SCH (08:17)
[2018-08-19] MEDS: NIFEdipine XL 60 MG TAB PO SCH (08:17)
[2018-08-19] MEDS: Atenolol 50 MG TAB PO SCH (08:17)
--- NOTE | 2018-08-19 08:35 | PDOC.FM ---
- Subjective Subjective: pt resting comfortably in bed, minimal abdominal pain, no diarrhea - Objective Vital Signs & Weight: Vital Signs (12 hours) Temp Pulse Resp BP BP Pulse Ox 08/19/18 08:17 76 117/72 08/19/18 07:23 98.3 F 76 20 117/72 97 08/19/18 05:04 98.7 F 67 16 107/70 92 L Weight Weight 92.533 kg I&O: 08/18/18 08/19/18 08/20/18 06:59 06:59 06:59 Intake Total 600 840 Balance 600 840 Result Diagrams: 08/19/18 05:27 08/19/18 05:27 Phys Exam - Physical Examination Constitutional: NAD HEENT: moist MMs Gastrointestinal: soft, non-tender, no distention Musculoskeletal: no edema, pulses present Neurological: moves all 4 limbs Psychiatric: normal affect Skin: no rash Dx/Plan (1) Pancreatic enlargement Code(s): K86.9 - DISEASE OF PANCREAS, UNSPECIFIED Status: Acute (2) CKD (chronic kidney disease), stage II Code(s): N18.2 - CHRONIC KIDNEY DISEASE, STAGE 2 (MILD) Status: Chronic (3) HTN (hypertension) Code(s): I10 - ESSENTIAL (PRIMARY) HYPERTENSION Status: Chronic Qualifiers: Hypertension type: essential hypertension Qualified Code(s): I10 - Essential (primary) hypertension (4) Lupus (systemic lupus erythematosus) Code(s): M32.9 - SYSTEMIC LUPUS ERYTHEMATOSUS, UNSPECIFIED Status: Chronic - Plan Plan: chronic pancreatitis - Lipase 52, LDH 297, AST/ALT improved - CT abdomen and pelvis with IV and oral contrast: pancreas is enlarged and stable since 07/2016. There is no mass, ductal dilatation, calcifications, or fat stranding. - Consult GI - Dr. Shaw, appreciate recs - EGD wnl, 20mg pred started - minimal pain, tolerating PO Transaminitis - improved Hypertension - Currently normotensive, stable, will resume atenolol 100mg and nifedipine 60mg. Lupus - Stable, pred increased to 20mg, Creon, and CellCept. - consider calling to confer with rhuematologist regarding pain GERD - Stable, continue Nexium. Anxiety/Depression - Stable, continue alprazolam, prozac, and buspirone. Asymptomatic bacteriuria - she is asymptomatic. If symptoms present, will treat accordingly. Code Status: Full VTE Prophylaxis: Lovenox 40mg Dispo: advance diet, consider DC today vs tomorrow Addendum - Attending - Attending Attestation Date/Time: 08/19/18 1121 I personally evaluated the patient and discussed the management with Dr. Villagran. I agree with the History, Examination, Assessment and Plan documented above with any addition or exceptions noted below.
[2018-08-19] MEDS: Mycophenolate 250 MG CAP PO SCH (09:23)
[2018-08-19 11:28] VITALS: BP 111/74; TEMP 98.2
[2018-08-19] MEDS ORDERED: Dexamethasone 10 MG/ML VIAL SLOW IVP SCH (11:30)
--- NOTE | 2018-08-20 13:29 | EKG ---
Test Reason : Blood Pressure : / mmHG Vent. Rate : 068 BPM Atrial Rate : 068 BPM P-R Int : 152 ms QRS Dur : 084 ms QT Int : 448 ms P-R-T Axes : 018 057 055 degrees QTc Int : 476 ms Normal sinus rhythm T wave abnormality, consider anterior ischemia Prolonged QT Abnormal ECG Similar to 07/29/2016 Confirmed by BROCK LEWIS DO ([id number]), pictures editor ENID VIRAMONTES ([id number]) on 08/20/2018 1:28:45 PM Referred By: Confirmed By:BROCK LEWIS DO
[2018-08-22 18:08] LABS: Neutral Fats And/Or Soaps Normal (.)
== END 2018-08-19 13:25 | disposition home or self-care (01) | DRG 392 ==
LOC: ERS 16:42 → ERHOLD 17:21 → T4-A 08-17 11:48
PROVIDERS: ADMIT Family Medicine; ATTEND Family Medicine
PROC: 0DJ08ZZ Inspection of Upper Intestinal Tract, Via Natural or Artificial Opening Endoscopic (ICD-10-PCS; principal; 2018-08-18)
DX: R11.2 Nausea with vomiting, unspecified (principal); K86.1 Other chronic pancreatitis; I25.10 Atherosclerotic heart disease of native coronary artery without angina pectoris; F41.9 Anxiety disorder, unspecified; I12.9 Hypertensive chronic kidney disease with stage 1 through stage 4 chronic kidney disease, or unspecified chronic kidney disease; N18.2 Chronic kidney disease, stage 2 (mild); M32.9 Systemic lupus erythematosus, unspecified; R74.0 Nonspecific elevation of levels of transaminase and lactic acid dehydrogenase [LDH]; K21.9 Gastro-esophageal reflux disease without esophagitis; F32.9 Major depressive disorder, single episode, unspecified; M81.0 Age-related osteoporosis without current pathological fracture; G89.29 Other chronic pain; Z90.49 Acquired absence of other specified parts of digestive tract; Z88.2 Allergy status to sulfonamides; Z88.8 Allergy status to other drugs, medicaments and biological substances
CPT/HCPCS: 36415; 74177; 80053; 80400; 81003; 81015; 82705; 83615; 83630; 83690; 85025; 85652; 86140; 86160; 86225; 87324; 87449; 93005; 96361; 96374; 96375; J0690; J0834; J1100; J1650; J1885; J2270; J2405; J2765; J3010; J7512; J7517; Q0162; Q9966; Q9967; S0028

== ENCOUNTER 2019-08-18 15:34 | Outpatient (CLI) | payer MEDICARE, OTHER ==
--- NOTE | 2019-08-18 16:18 | BD ---
DEXA BONE DENSITOMETRY: (Dual energy x-ray absorptiometry) DATE: 08/18/2019 HISTORY: 48-year old black female for age-related, post-menopausal, osteoporosis screening. weight: 200 lbs height: 61 in. Age of menopause: 46 COMPARISON: None available. FINDINGS: The bone mineral density (BMD) is given in grams per square centimeter (g/cm2): LUMBAR SPINE: BMD (g/cm^2) T score Z score L1: 0.825 -1.5 -1.7 L2: 0.842 -1.7 -1.9 L3: 0.812 -2.5 -2.7 L4: 0.811 -2.3 -2.5 Total: 0.821 - 2. 1 -2.3 HIP: BMD (g/cm^2) T score Z score Right Femoral neck: 0.684 -1.5 -1.5 Total: 0.878 -0.5 -0.8 FRAX WHO fracture risk assessment tool: 10 year fracture risk* Major osteoporotic fracture: 4.2 % Hip fracture: 0.4 % Reported risk factors: [place] (black), neck BMD = 0.684 (g/cm^2), BMI = 37.8., Previous fracture, and rheumatoid arthritis *Fracture probability is calculated for an untreated patient. Fracture probability may be lower if th e patient has received treatment. IMPRESSION: 1.) The mean bone mineral density of the lumbar spine is osteopenic. Fracture risk is increased. 2) The bone mineral density of the femoral neck is osteopenic. Fracture risk is increased.
== END 2019-08-18 15:35 | disposition home or self-care (01) ==
LOC: BICMAMMO 15:34
PROVIDERS: ATTEND Internal Medicine Rheumatology
DX: M81.0 Age-related osteoporosis without current pathological fracture (principal); M85.851 Other specified disorders of bone density and structure, right thigh
CPT/HCPCS: 77080

== ENCOUNTER 2019-11-20 09:46 | Outpatient (CLI) | payer MEDICARE, OTHER ==
[2019-11-21 12:04] LABS: SARS-CoV-2 MS2 Positive; SARS-CoV-2 N Gene Negative; SARS-CoV-2 S Gene Negative; SARS-CoV-2 by NAA Not Detected (NotDetected); SARS-CoV-2 orf1ab Negative
== END 2019-11-20 09:47 | disposition home or self-care (01) ==
LOC: LABBT 09:46
PROVIDERS: ATTEND Family Medicine
DX: Z20.828 Contact with and (suspected) exposure to other viral communicable diseases (principal)
CPT/HCPCS: 87635; U0003

== ENCOUNTER 2019-11-23 11:09 | Outpatient (CLI) | payer MEDICARE, MEDICAID ==
--- NOTE | 2019-11-23 12:01 | RAD ---
XR Barium Swallow Esophagus HISTORY: Choking, dysphagia, systemic lupus erythematosus COMPARISON: None. FINDINGS: The psych tech film demonstrates cardiomegaly. Swallowing was grossly normal. There is unobstructed flow of contrast through the esophagus into the stomach. No ulcer, stricture, mass or diverticulum is seen. A 12 mm barium tablet passed promptly from the esophagus into the stomach without stasis. IMPRESSION: Normal exam
== END 2019-11-23 11:10 | disposition home or self-care (01) ==
LOC: RAD 11:09
PROVIDERS: ATTEND Family Medicine
DX: T17.308D Unspecified foreign body in larynx causing other injury, subsequent encounter (principal); R13.10 Dysphagia, unspecified; M32.10 Systemic lupus erythematosus, organ or system involvement unspecified
CPT/HCPCS: 74220

== ENCOUNTER 2020-06-27 22:24 | Emergency (ER) | payer MEDICARE, OTHER ==
[2020-06-27 23:00] LABS: Bilirubin Negative (Negative); Blood, Urine Negative (Negative); Clarity Clear (Clear); Glucose, Urine (Dipstick) Normal (Negative); Ketone, Urine Negative (Negative); Leukocyte Negative Leu/uL (Negative); Nitrite Negative (Negative); Protein, Urine (Dipstick) 10 mg/dL (Neg-Trace); Specific Gravity, Urine 1.025 (1.002-1.036); Urobilinogen Normal mg/dL (Less than 2)
[2020-06-27] MEDS ORDERED: Ondansetron PF 4 MG/2 ML Vial ONE (23:20)
[2020-06-27] MEDS ORDERED: Morphine 4 MG/ML VIAL ONE (23:20)
[2020-06-28 00:26] LABS: #Basophils 0.1 thou/uL (0.0-0.2); #Eosinphils 0.2 thou/uL (0.0-0.7); #Lymphocytes 3.4 thou/uL (1.20-3.40); #Monocytes 0.8 thou/uL (0.11-0.59); #Neutrophils 4.3 thou/uL (1.40-6.50); %Basophils 1.6 % (0.0-1.0); %Eosinophils 2.7 % (0.0-10.0); %Lymphocytes 38.4 % (21.0-51.0); %Monocytes 8.6 % (0.0-10.0); %Neutrophils 48.7 % (42.0-75.0); Hemoglobin 14.7 g/dL (12.0-16.0); Mean Corpuscular HGB CONC 32.1 g/dL (32.0-36.0); Mean Corpuscular Hemoglobin 31.1 pg (27.0-31.0); Mean Corpuscular Volume 96.8 fL (78.0-98.0); Mean Platelet Volume 6.5 fL (7.4-10.4); Platelet Count 341 thou/uL (130-400); RBC Distribution Width 13.4 % (11.5-14.5); Red Blood Cell (RBC) Count 4.72 mill/uL (4.20-5.40); White Blood Cell (WBC) Count 8.8 thou/uL (4.8-10.8)
[2020-06-28 00:47] LABS: ALT (SGPT) 20 U/L (8-55); AST (SGOT) 14 U/L (5-34); Albumin 4.2 g/dL (3.5-5.0); Alkaline Phosphatase 77 U/L (40-110); Anion Gap 14 mmol/L (10-20); BUN (Urea Nitrogen) 8 mg/dL (7.0-18.7); Bilirubin, Total 0.3 mg/dL (0.2-1.2); Calc. Creatinine Clearance 0 mL/min (70-130); Calcium 9.4 mg/dL (7.8-10.44); Carbon Dioxide 26 mmol/L (22-29); Chloride 105 mmol/L (98-107); Globulin 3.6 g/dL (2.4-3.5); Glucose 109 mg/dL (70-105); Lipase 45 U/L (8-78); Potassium 3.9 mmol/L (3.5-5.1); Protein, Total 7.8 g/dL (6.0-8.3); Sodium 141 mmol/L (136-145)
== END 2020-06-28 01:27 | disposition home or self-care (01) ==
LOC: ERS 22:24
DX: R10.13 Epigastric pain (principal); I10 Essential (primary) hypertension; Z79.899 Other long term (current) drug therapy
CPT/HCPCS: 74177; 80053; 81003; 83690; 85025; 87086; 96374; 96375; J2270; J2405

== ENCOUNTER 2021-12-23 09:54 | Day surgery (SDC) | payer MEDICARE, MEDICAID ==
[~2021-12-23 09:54] MED LIST changes: -ISOVUE-370 76%-LOCM 1 ML ONE; -Iopamidol 370 76% 50 ML VIAL FS ONE; +SODIUM CHLORIDE 0.9% IV SCH; +[UNRECOGNIZED DRUG - OTHER] IV SCH
[2021-12-23 11:06] VITALS: BP 138/83; TEMP 97.8
== END 2021-12-23 12:14 | disposition home or self-care (01) ==
LOC: ONC/OP 09:54
PROVIDERS: ATTEND Internal Medicine Rheumatology
DX: M32.9 Systemic lupus erythematosus, unspecified (principal); Z88.1 Allergy status to other antibiotic agents; Z88.2 Allergy status to sulfonamides
CPT/HCPCS: 96413

== ENCOUNTER 2022-04-13 11:21 | Outpatient (CLI) | payer MEDICARE, MEDICAID | END 2022-04-13 11:22 | disposition home or self-care (01) | LOC: BICRAD 11:21 | PROVIDERS: ATTEND Internal Medicine Gastroenterology | DX: R10.33 Periumbilical pain (principal); K59.00 Constipation, unspecified; R09.02 Hypoxemia; J98.4 Other disorders of lung | CPT/HCPCS: 74019 ==

== ENCOUNTER 2023-02-27 10:12 | Emergency (ER) | payer MEDICARE, OTHER ==
[2023-02-27 10:55] LABS: #Basophils 0.1 thou/uL (0.0-0.2); #Eosinphils 0.4 thou/uL (0.0-0.7); #Neutrophils 5.2 thou/uL (1.40-6.50); %Basophils 0.7 % (0.0-1.0); %Eosinophils 3.4 % (0.0-10.0); %Lymphocytes 40.4 % (21.0-51.0); %Monocytes 9.2 % (0.0-10.0); Hematocrit 46.6 % (36.0-47.0); Hemoglobin 15.1 g/dL (12.0-16.0); Mean Corpuscular HGB CONC 32.4 g/dL (32.0-36.0); Mean Corpuscular Hemoglobin 31.4 pg (27.0-31.0); Mean Corpuscular Volume 96.9 fl (78.0-98.0); Mean Platelet Volume 8.5 fL (7.4-10.4); Platelet Count 339 10x3/uL (130-400); RBC Distribution Width 14.2 % (11.5-14.5); Red Blood Cell (RBC) Count 4.81 mill/uL (4.20-5.40); White Blood Cell (WBC) Count 11.2 10x3/uL (4.8-10.8)
[2023-02-27 11:20] LABS: ALT (SGPT) 15 U/L (8-55); AST (SGOT) 12 U/L (5-34); Albumin 4.1 g/dL (3.5-5.0); Alkaline Phosphatase 73 U/L (40-110); Anion Gap 13 mmol/L (10-20); BUN (Urea Nitrogen) 7 mg/dL (9.8-20.1); Bilirubin, Total 0.5 mg/dL (0.2-1.2); Calc. Creatinine Clearance 0 mL/min (70-130); Calcium 9.3 mg/dL (7.8-10.44); Carbon Dioxide 28 mmol/L (22-29); Chloride 103 mmol/L (98-107); Estimated GFR 79; Globulin 3.5 g/dL (2.4-3.5); Glucose 87 mg/dL (70-105); Lipase 36 U/L (8-78); Protein, Total 7.6 g/dL (6.0-8.3); Sodium 140 mmol/L (136-145)
[2023-02-27] MEDS ORDERED: Morphine 4 MG/ML VIAL ONE (11:52)
[2023-02-27] MEDS ORDERED: Ondansetron PF 4 MG/2 ML Vial ONE (11:53)
[2023-02-27 12:35] LABS: Troponin I Less than 0.010 ng/mL (< 0.028)
[2023-02-27] MEDS ORDERED: Iopamidol-370 76% 500 ML MDV (1 ML CHARGE) ONE (12:53)
[2023-02-27 15:09] LABS: Bilirubin Negative (Negative); Blood, Urine Negative (Negative); CAUTI Indications for Culture Pelvic or flank pain; Clarity Clear (Clear); Glucose, Urine (Dipstick) Normal (Negative); Ketone, Urine Negative (Negative); Leukocyte 250 Leu/uL (Negative); Nitrite Negative (Negative); Protein, Urine (Dipstick) Negative (Neg-Trace); RBC/HPF 0-3 HPF (0-3); Urobilinogen Normal mg/dL (Less than 2); pH, Urine 6.5 (5.0-9.0)
[2023-02-27 15:10] LABS: Bacteria/HPF 1+ HPF (None Seen); Specific Gravity, Urine 1.056 (1.002-1.036)
[2023-02-27 15:11] LABS: Urine Culture Reflex No No
== END 2023-02-27 15:41 | disposition home or self-care (01) ==
LOC: ERS 10:12
DX: K76.0 Fatty (change of) liver, not elsewhere classified (principal); R91.1 Solitary pulmonary nodule; N39.0 Urinary tract infection, site not specified; I10 Essential (primary) hypertension; I25.10 Atherosclerotic heart disease of native coronary artery without angina pectoris
CPT/HCPCS: 36415; 71045; 74177; 80053; 81001; 83690; 84484; 85025; 93005; 96361; 96374; 96375; J2270; J2405; Q9967